=== PATIENT | female | born 1990 | race Caucasian/White ===

== ENCOUNTER → 2020-05-22 | Outpatient (CLI) | payer MEDICAID ==
--- NOTE | 2020-05-22 12:33 | REP ---
INDICATION: ANATOMY COMPARISON: None. TECHNIQUE: Transabdominal obstetrical ultrasound with color Doppler evaluation. FINDINGS: Examination demonstrates a single live intrauterine in transverse (head to maternal right) presentation. motion is identified by technologist. Placenta is noted anterior and grade 1 without evidence for placenta previa or abruption. Amniotic fluid volume is normal. Cervix measures 4.0 cm in length and appears closed.. Gestational age by LMP 18 weeks 3 days with SALLY 10/20/2020. Gestational age by current measurements 18 weeks 3 days with SALLY 10/20/2020. FHR equals 153 beats per minute. BPD: 3.8 cm 17 weeks 4 days HC: 14.7 cm 17 weeks 6 days AC: 13.8 cm 19 weeks 1 day FL: 2.8 cm 18 weeks 3 days HL: 2.8 cm 18 weeks 6 days HC/AC: 1.07 Estimated weight 251 grams (62ndpercentile). Anatomical assessment demonstrates normal structures including cranium, choroid plexus, cavum, cerebellum/posterior fossa, facial features, lungs, four-chamber heart/ventricular outflow tracts, diaphragm, stomach, cord insertion/three-vessel cord, kidneys/bladder, spine, and extremities. IMPRESSION: Single live intrauterine in transverse lie demonstrating appropriate estimated weight and growth. Anatomical assessment is complete and normal. <Electronically signed by Balaji Teixeira > 05/22/20 [id number]
== END ==
LOC: M WHC 10:31
PROVIDERS: ATTEND Advanced Practice Midwife
DX: Z34.82 Encounter for supervision of other normal pregnancy, second trimester (principal)

== ENCOUNTER → 2020-07-21 | Outpatient (REF) | payer OTHER ==
[2020-07-21 13:43] LABS: HEMOGLOBIN 11.5 g/dl (12.0-15.5); MEAN CORPUSCULAR HEMOGLOBIN 28.4 pg (27.0-33.0); MEAN CORPUSCULAR HGB CONC 31.9 g/dl (32.0-36.5); MEAN CORPUSCULAR VOLUME 88.9 fl (80.0-96.0); PLATELET COUNT, AUTOMATED 279 10^3/uL (150-450); RED BLOOD COUNT 4.05 10^6/uL (4.00-5.40)
== END ==
LOC: M PLALAB 10:54
PROVIDERS: ATTEND Obstetrics & Gynecology
DX: Z34.82 Encounter for supervision of other normal pregnancy, second trimester (principal); Z3A.00 Weeks of gestation of pregnancy not specified

== ENCOUNTER → 2020-08-14 | Outpatient (CLI) | payer OTHER | LOC: M LABSMTC 14:19 | PROVIDERS: ATTEND Pediatrics | DX: Z20.822 Contact with and (suspected) exposure to COVID-19 (principal) ==

== ENCOUNTER → 2020-08-25 | Outpatient (CLI) | payer OTHER, MEDICAID | LOC: M LAB 07:00 | PROVIDERS: ATTEND Obstetrics & Gynecology | DX: Z34.82 Encounter for supervision of other normal pregnancy, second trimester (principal); Z3A.00 Weeks of gestation of pregnancy not specified ==

== ENCOUNTER → 2020-09-26 | Outpatient (REF) | payer OTHER | LOC: M PLALAB 08:03 | PROVIDERS: ATTEND Obstetrics & Gynecology | DX: Z3A.35 35 weeks gestation of pregnancy (principal) ==

== ENCOUNTER 2020-10-09 20:19 | Outpatient (CLI) | payer OTHER ==
[~2020-10-09] VITALS: Ht 180.3 cm; Wt 131.2 kg
[2020-10-09] MEDS ORDERED: ACETAMINOPHEN 500 MG TAB PO ONE (21:15)
[2020-10-09 21:20] VITALS: BP 144/89
[2020-10-09 21:50] VITALS: BP 140/78
[2020-10-09 22:20] VITALS: BP 143/77
[2020-10-09 22:37] LABS: TOTAL PROTEIN,RANDOM URINE 30.4 MG/DL (0.0-12.0)
[2020-10-09 22:51] VITALS: BP 134/71
[2020-10-09 23:02] LABS: ALT/SGPT 12 U/L (12-78); BILIRUBIN,TOTAL 0.2 MG/DL (0.2-1.0); GLOMERULAR FILTRATION RATE > 60.0 (>60); LDH LACTATE DEHYDROGENASE 144 U/L (84-246); URIC ACID 4.5 MG/DL (2.6-6.0)
[2020-10-09 23:20] VITALS: BP 130/71
[2020-10-09 23:38] VITALS: BP 138/81
== END 2020-10-09 23:55 | disposition home or self-care (01) ==
LOC: M LDO 20:19
PROVIDERS: ATTEND Obstetrics & Gynecology
DX: O47.9 False labor, unspecified (principal); Z3A.38 38 weeks gestation of pregnancy

== ENCOUNTER 2020-10-15 10:02 | Inpatient (IN) | payer OTHER ==
[2020-10-15] VITALS (11 sets, daily range): BP systolic 124–181; BP diastolic 57–106
[~2020-10-15] VITALS: Ht 177.8 cm; Wt 130.0 kg
[2020-10-15] MEDS: miSOPROStol 50MCG 1/2 TABLET PO SCH ×3 (12:09→20:22)
--- NOTE | 2020-10-15 12:13 | HPE ---
HISTORY AND PHYSICAL DATE OF ADMISSION: 10/15/2020 SUBJECTIVE: Jenny is a 30-year-old 3, para 2-0-0-2 at 38 and 4/7 weeks gestation with EDC of 10/25/20 based on first trimester ultrasound. She presents to Labor and Delivery today for induction of labor due to gestational hypertension. She reports good movement. She denies vaginal bleeding, leakage of fluid, and painful contractions. [facility] care was [facility] at [facility] in the first trimester. Her course was complicated by recent diagnosis of gestational hypertension. Her spot urine was normal. Preeclamptic labs were normal. OBSTETRIC HISTORY: number 3, two prior term deliveries. OBSTETRIC LABORATORY: Obstetric labs were normal. GBS was negative. Gestational diabetic screening normal. PAST MEDICAL HISTORY: Noncontributory. SURGERIES: Tympanostomy. FAMILY HISTORY: Lung cancer, myocardial infarction. Both of her parents are . SOCIAL HISTORY: She is a nonsmoker, denies alcohol and drug use. She does have a history of chlamydia. She is , but the father of the baby is involved and at the bedside. ALLERGIES: No known drug allergies. CURRENT MEDICATIONS: vitamin. OBJECTIVE: Temperature 97.8. Pulse 97. Blood pressure is 137/88. heart rate is 150 with moderate variability, positive accelerations, negative decelerations. There is no pattern of regular contractions. Her abdomen is gravid, cephalic presentation, with an estimated weight 7.5 to 8 pounds. Sterile vaginal exam shows 1 cm dilated, 50% ballotable, posterior, soft. ASSESSMENT: 1. Intrauterine at 38 and 4/7 weeks. 2. heart rate category 1. 3. Gestational hypertension. PLAN: 1. Admit patient to labor and delivery. 2. Saline lock. 3. Out of bed ad ronni. 4. Routine labs with the addition of a repeat preeclamptic profile. 5. Misoprostol for cervical ripening, 50 mcg, p.o., q.4 h. 6. Will likely start IV Pitocin. 7. May consider assisted rupture of membranes for labor augmentation. 8. The patient, at this time, is uncertain, how she is going to cope with her labor, but will not dismiss use of an epidural. 9. She has been verbally consented for emergency surgery and blood products if they are necessary. 10. Risks, benefits, and alternatives have been reviewed. All of her and her partner's questions have been answered. 11. I do anticipate cervical ripening.
[2020-10-15 12:14] LABS: HEMATOCRIT 32.9 % (36.0-47.0); HEMOGLOBIN 10.5 g/dl (12.0-15.5); MEAN CORPUSCULAR HEMOGLOBIN 25.6 pg (27.0-33.0); MEAN CORPUSCULAR HGB CONC 31.9 g/dl (32.0-36.5); MEAN CORPUSCULAR VOLUME 80.2 fl (80.0-96.0); PLATELET COUNT, AUTOMATED 332 10^3/uL (150-450); WHITE BLOOD COUNT 11.7 10^3/uL (4.0-10.0)
[2020-10-15 12:53] LABS: ALT/SGPT 14 U/L (12-78); BILIRUBIN,TOTAL 0.2 MG/DL (0.2-1.0); CREATININE FOR GFR 0.52 MG/DL (0.55-1.30); GLOMERULAR FILTRATION RATE > 60.0 (>60); LDH LACTATE DEHYDROGENASE 162 U/L (84-246); URIC ACID 4.6 MG/DL (2.6-6.0)
[2020-10-16] VITALS (30 sets, daily range): BP systolic 100–166; BP diastolic 56–91
[2020-10-16] MEDS: LR 1,000 ML IV SCH ×2 (00:57→07:15)
[2020-10-16] MEDS: OXYTOCIN DRIP 30 UNITS in IV 1 EA IV SCH ×2 (00:58→16:33)
--- NOTE | 2020-10-16 15:57 | IPNPDOC ---
Obstetrical Progress Note Date of Service Oct 16, 2020 Subjective 30 yo at 38 4/7 weeks, induction for gestational hypertension. Feels strong contractions. Objective Vital Signs Date Time Temp Pulse Resp B/P (MAP) Pulse Ox O2 Delivery O2 Flow Rate FiO2 10/16/20 15:07 84 146/82 (103) 10/16/20 13:14 97.9 18 10/16/20 07:05 Room Air Assessment Variability: Moderate Accelerations: Positive Decelerations: None Heart Rate Tracing: Category I Tocometer Contractions: Yes Frequency: regular Strength: palpated as moderate Sterile Vaginal Examination Dilation: 6 cm Effacement (%): 70% Station: -2 Cervical Consistency: Medium Cervical Position: Posterior Assessment and Plan Status: Reassuring Additional Comments 30 yo at 38 4/7 weeks, induction for gestational hypertension Pt had SROM this morning Continue Pitocin IV FSE placed to help with monitoring as pt changes position NICK TURNER MD Oct 16, 2020 15:57
[2020-10-16] MEDS ORDERED: OXYTOCIN 30 UNITS IN 0.9% NaCl 500ML IV BAG (J2590) As Ordered ONE (16:26)
[2020-10-16] MEDS ORDERED: RHOGAM 300 MCG (1500 IU) INJ (J2790) IM SCH (18:05)
[2020-10-16] MEDS ORDERED: DOCUSATE SODIUM 100MG CAPSULE PO PRN (18:05)
[2020-10-16] MEDS ORDERED: ONDANSETRON 4MG/2ML VIAL IV PRN (18:05)
[2020-10-16] MEDS ORDERED: DIBUCAINE 1% OINTMENT 30GM TOP PRN (18:05)
[2020-10-16] MEDS ORDERED: ACETAMINOPHEN 500 MG TAB PO PRN (18:05)
[2020-10-16] MEDS ORDERED: OXYTOCIN DRIP 30 UNITS in IV 1 EA IV ONE (18:05)
[2020-10-16] MEDS ORDERED: MEASLES,MUMPS,RUBELLA VACCINE INJ (MMR-II) (90707) SC SCH (18:05)
[2020-10-16] MEDS ORDERED: METHYLERGONOVINE MALEATE 0.2 MG TAB PO PRN (18:05)
[2020-10-16] MEDS ORDERED: IBUPROFEN 600MG TAB PO PRN (18:05)
[2020-10-16] MEDS ORDERED: ACETAMINOPHEN TAB 650MG DOSE (2X325MG) PO PRN (18:05)
[2020-10-16] MEDS ORDERED: LIDOCAINE 1% MDV 20ML VIAL INFIL ONE (18:05)
[2020-10-16] MEDS ORDERED: IBUPROFEN 800 MG TAB PO PRN (18:05)
--- NOTE | 2020-10-16 18:08 | DNPDOC ---
[facility] Delivery Note Delivery Note DATE OF DELIVERY: October 16, 2020 PREDELIVERY DIAGNOSIS: 38 4/7 4/7 weeks' gestation, induction, gestational hypertension POST DELIVERY DIAGNOSIS: Delivered. PROCEDURE: Spontaneous vaginal delivery. COUNTY SURVEYOR: Dr. Nick Turner MD ANESTHESIA: none. ESTIMATED BLOOD LOSS: 300 mL. FINDINGS: 9 pound 8 ounce Male infant, Score 8/9. DELIVERY SUMMARY: Patient is a 30-year-old 3 now para 3 who was admitted to labor and delivery for labor induction. After a 3 minute second stage of labor she progressed to a spontaneous vaginal delivery of a 9 lb. 8 oz. Male infant. There was no delivery anesthesia. No nuchal cord. Shoulders delivered with ease. was handed to the mother and cried quickly. The cord was clamped and cut. The placenta delivered spontaneously and appeared intact. The patient received IV Pitocin immediately after delivery of the placenta. A second degree perineal laceration was repaired with 2-O Chromic under local anesthesia in the usual fashion. Sponge and needle counts were correct. NICK TURNER MD Oct 16, 2020 18:08
[2020-10-17 06:00] VITALS: BP 115/61
[2020-10-17] MEDS: PRENATAL VITAMINS CHEWABLE TABLET PO SCH (08:10)
[2020-10-17 17:52] VITALS: BP 135/78
[2020-10-18 06:00] VITALS: BP 124/70
[2020-10-18] MEDS ORDERED: ACET-683 PO (08:12)
[2020-10-18] MEDS ORDERED: IBUP80TA PO (08:12)
[2020-10-18] MEDS: PRENATAL VITAMINS CHEWABLE TABLET PO SCH (09:00)
== END 2020-10-18 11:35 | disposition home or self-care (01) | DRG 560 ==
LOC: M LDI 10:02 → M OBS 10-16 22:04
PROVIDERS: ADMIT Advanced Practice Midwife; ATTEND Advanced Practice Midwife
PROC: 3E0P7GC Introduction of Other Therapeutic Substance into Female Reproductive, Via Natural or Artificial Opening (ICD-10-PCS; 2020-10-15)
PROC: 10E0XZZ Delivery of Products of Conception, External Approach (ICD-10-PCS; principal; 2020-10-16)
PROC: 0KQM0ZZ Repair Perineum Muscle, Open Approach (ICD-10-PCS; 2020-10-16)
DX: O13.4 Gestational [pregnancy-induced] hypertension without significant proteinuria, complicating childbirth (principal); Z3A.38 38 weeks gestation of pregnancy; Z37.0 Single live birth; O62.3 Precipitate labor; O70.1 Second degree perineal laceration during delivery

== ENCOUNTER → 2021-02-09 | Outpatient (CLI) | payer OTHER ==
[~2021-02-09] MED LIST: ACET-683 PO; IBUP80TA PO
[2021-02-09 17:23] LABS: BASO # 0.1 10^3/uL (0.0-0.2); EOS # 0.3 10^3/uL (0.0-0.5); EOS % 3.2 % (0.0-3.0); HEMOGLOBIN 11.7 g/dl (12.0-15.5); LYMPH # 2.2 10^3/uL (1.5-5.0); LYMPH % 26.8 % (24.0-44.0); MEAN CORPUSCULAR HEMOGLOBIN 24.9 pg (27.0-33.0); MEAN CORPUSCULAR HGB CONC 30.8 g/dl (32.0-36.5); MEAN CORPUSCULAR VOLUME 80.9 fl (80.0-96.0); MONO # 0.6 10^3/uL (0.0-0.8); MONO % 7.7 % (2.0-8.0); NEUTROPHILS # 4.9 10^3/uL (1.5-8.5); NEUTROPHILS % 61.1 % (36.0-66.0); PLATELET COUNT, AUTOMATED 348 10^3/uL (150-450)
[2021-02-09 17:58] LABS: ALBUMIN 3.5 GM/DL (3.2-5.2); ALT/SGPT 27 U/L (12-78); BILIRUBIN,TOTAL 0.4 MG/DL (0.2-1.0); BLOOD UREA NITROGEN 15 MG/DL (7-18); CALCIUM LEVEL 9.2 MG/DL (8.5-10.1); CARBON DIOXIDE LEVEL 27 MEQ/L (21-32); CHLORIDE LEVEL 105 MEQ/L (98-107); CHOLESTEROL LEVEL 220 MG/DL (<200); CREATININE FOR GFR 0.66 MG/DL (0.55-1.30); FREE T4 0.94 NG/DL (0.76-1.46); GLOMERULAR FILTRATION RATE > 60.0 (>60); GLUCOSE, FASTING 86 MG/DL (70-100); HDL CHOLESTEROL 53 MG/DL (>40); IRON (FE) 34 UG/DL (50-170); LDL CHOLESTEROL 142 MG/DL (<100); NON-HDL-C 167 MG/DL; POTASSIUM SERUM 4.1 MEQ/L (3.5-5.1); SODIUM LEVEL 138 MEQ/L (136-145); THYROID STIMULATING HORMONE 0.942 uIU/ML (0.358-3.740); TOTAL PROTEIN 6.9 GM/DL (6.4-8.2); TRIGLYCERIDES LEVEL 127 MG/DL (<150)
[2021-02-09 18:16] LABS: HEMOGLOBIN A1c 5.5 %
== END ==
LOC: M PLALAB 15:13
PROVIDERS: ATTEND Physician Assistant Medical
DX: J00 Acute nasopharyngitis [common cold] (principal)

== ENCOUNTER → 2021-03-24 | Outpatient (CLI) | payer OTHER | LOC: M PLALAB 09:03 | PROVIDERS: ATTEND Physician Assistant Medical | DX: D50.0 Iron deficiency anemia secondary to blood loss (chronic) (principal) ==

== ENCOUNTER → 2021-04-16 | Outpatient (REF) | payer OTHER | LOC: M SFHCPLAZ 13:00 | PROVIDERS: ATTEND Physician Assistant Medical | DX: D50.0 Iron deficiency anemia secondary to blood loss (chronic) (principal) ==

== ENCOUNTER → 2024-05-21 | Outpatient (REF) | payer OTHER | LOC: M LAB REF 09:54 | PROVIDERS: ATTEND Surgery | DX: D23.9 Other benign neoplasm of skin, unspecified (principal) ==

== ENCOUNTER 2024-12-17 18:37 | Emergency (ER) | payer OTHER ==
[~2024-12-17] VITALS: Ht 177.8 cm; Wt 145.6 kg
[2024-12-17 18:39] VITALS: BP 172/87; TEMP 97.7; O2SAT 99
== END 2024-12-17 23:02 | disposition left against medical advice (07) ==
LOC: M ED 18:37
DX: Z53.21 Procedure and treatment not carried out due to patient leaving prior to being seen by health care provider (principal)

== ENCOUNTER 2025-04-30 09:46 | Day surgery (SDC) | payer OTHER ==
[~2025-04-30] VITALS: Ht 177.8 cm; Wt 147.5 kg
[2025-04-30] MEDS ORDERED: LR 1,000 ML IV SCH (09:50)
[2025-04-30] MEDS ORDERED: dexAMETHasone 4 MG/ML 1 ML VIAL As Ordered ONE (11:28)
[2025-04-30] MEDS ORDERED: SUGAMMADEX SODIUM 500 MG/5 ML VIAL As Ordered ONE (11:28)
[2025-04-30] MEDS ORDERED: ROCURONIUM BROMIDE 50MG/5ML VIAL As Ordered ONE (11:28)
[2025-04-30] MEDS ORDERED: LIDOCAINE 2% 100 MG/5 ML SDV (FOR ANES.) As Ordered ONE (11:28)
[2025-04-30] MEDS ORDERED: ONDANSETRON 4MG 2ML VIAL As Ordered ONE (11:28)
[2025-04-30] MEDS ORDERED: MIDAZOLAM INJ 2 MG/2 ML VIAL As Ordered ONE (11:32)
[2025-04-30] MEDS ORDERED: ACETAMINOPHEN 1000MG/100ML IV BAG As Ordered ONE (14:02)
[2025-04-30] MEDS: CIPRODEX OTIC SUSP 7.5 ML As Ordered ONE (14:20)
[2025-04-30] MEDS: EPINEPHrine 1 MG/ML INJ 30 ML MD-VIAL As Ordered ONE (14:56)
[2025-04-30] MEDS: METHYLENE BLUE 0.5% (5 MG/ML) 10 ML AMP As Ordered ONE (14:57)
[2025-04-30] MEDS: OXYMETAZOLINE 0.05% NASAL SPRAY As Ordered ONE (15:07)
[2025-04-30] MEDS: MORPHINE 4 MG/ML 1 ML VIAL IV PRN (15:45)
[2025-04-30 17:03] VITALS: BP 160/82; TEMP 97.7; O2SAT 98
== END 2025-04-30 17:25 | disposition home or self-care (01) ==
LOC: M SDC 09:46
PROVIDERS: ATTEND Otolaryngology
DX: H69.82 Other specified disorders of Eustachian tube, left ear (principal); J35.2 Hypertrophy of adenoids; H73.892 Other specified disorders of tympanic membrane, left ear; R09.81 Nasal congestion; R73.03 Prediabetes
CPT/HCPCS: 42831; 69436; 69705; 81025; C1726; J0131; J0169; J1100; J2250; J2405; J3010; Q9968